=== PATIENT | female | born 1965 | race Caucasian/White ===

== ENCOUNTER → 2016-11-06 | Outpatient (CLI) | payer OTHER ==
[~2016-11-06] MED LIST: AGM875 PO; OXYC1TAB3 PO; PRLSR20 PO
== END | disposition home or self-care (01) ==
LOC: C.PAPS 14:05
PROVIDERS: ATTEND Obstetrics & Gynecology
DX: Z12.4 Encounter for screening for malignant neoplasm of cervix (principal)

== ENCOUNTER → 2017-01-08 | Outpatient (CLI) | payer OTHER ==
[2017-01-08 10:39] LABS: BASO % 0.9 %; BASO ABS # 0.03 K/uL (0-0.2); COMPLETE YES; EOS % 1.8 %; LYMPH % 38.5 %; LYMPH ABS # 1.27 K/uL (1.2-3.4); MEAN CELL VOLUME 93.3 fL (80-100); MEAN CORPUSCULAR HEMOGLOBIN 30.9 pg (25-34); MEAN CORPUSCULAR HGB CONC 33.1 g/dl (32-36); MEAN PLATELET VOLUME 11.6 fL (7.4-10.4); MONO % 10.6 %; NEUT % 48.2 %; PLATELET COUNT 226 K/uL (130-400)
[2017-01-08 11:06] LABS: ALT/SGPT 29 U/L (12-78); AMYLASE 25 U/L (25-115); BLOOD UREA NITROGEN 21 mg/dl (7-18); BUN/CREATININE RATIO 25.2 (10-20); CALCIUM 9.2 mg/dl (8.5-10.1); CARBON DIOXIDE 29 mmol/L (21-32); CHLORIDE 102 mmol/L (98-107); CHOLESTEROL 177 mg/dl (0-200); CREATININE 0.82 mg/dl (0.60-1.20); GLUCOSE 87 mg/dl (70-99); POTASSIUM 4.6 mmol/L (3.5-5.1); SODIUM 140 mmol/L (136-145); TRIGLYCERIDES 47 mg/dl (0-150); VERY LOW DENSITY LIPOPROT CALC 9 mg/dl
[2017-01-08 11:16] LABS: ALB/GLOB RATIO 1.4 (0.9-2); ALKALINE PHOSPHATASE 58 U/L (45-117); AST/SGOT 16 U/L (15-37); HDL CHOLESTEROL 90 mg/dl; LDL CHOLESTEROL CALCULATED 78 mg/dl; TOTAL IRON BINDING CAPACITY 307 mcg/dl (250-450)
== END | disposition home or self-care (01) ==
LOC: C.LAB1850 09:47
PROVIDERS: ATTEND Physician Assistant
DX: R53.81 Other malaise (principal); E78.00 Pure hypercholesterolemia, unspecified; R10.11 Right upper quadrant pain

== ENCOUNTER → 2017-02-08 | Outpatient (CLI) | payer OTHER ==
--- NOTE | 2017-02-09 07:54 | MAMMOGRAPHY REPORT ---
BILATERAL DIGITAL SCREENING MAMMOGRAM TOMOSYNTHESIS WITH CAD: 02/08/2017 CLINICAL HISTORY: Routine screening. Patient has no complaints. TECHNIQUE: Breast tomosynthesis in addition to standard 2D mammography was performed. Current study was also evaluated with a Computer Aided Detection (CAD) system. COMPARISON: Comparison is made to exams dated: 02/03/2016 mammogram, 01/09/2015 mammogram, 4 mammogram, 12/07/2012 mammogram, 12/02/2011 mammogram, and 11/26/2010 mammogram - [facility]. BREAST COMPOSITION: There are scattered areas of fibroglandular density in both breasts. FINDINGS: The parenchymal pattern is unchanged. No developing mass, architectural distortion or clus ter of suspicious microcalcifications is seen in either breast. IMPRESSION: ACR BI-RADS CATEGORY 2: BENIGN There is no mammographic evidence of malignancy. A 1 year screening mammogram is recommended. The pa tient will receive written notification of the results. Approximately 10% of breast cancers are not detected with mammography. A negative mammographic report should not delay biopsy if a clinically suggestive mass is present. Khadra Moe M.D. ay/:02/08/2017 17:25:15 [facility] [employer] [facility] Director: Keisha JJ(Mari)(Marcella)(BD), [facility] letter sent: Normal 1/2 BI-RADS Code: ACR BI-RADS Category 2: Benign
== END | disposition home or self-care (01) ==
LOC: C.MAMM 07:33
PROVIDERS: ATTEND Obstetrics & Gynecology
DX: Z12.31 Encounter for screening mammogram for malignant neoplasm of breast (principal)

== ENCOUNTER → 2017-07-05 | Day surgery (SDC) | payer OTHER ==
[2017-06-25 09:00] VITALS: Ht 157.5 cm; Wt 59.1 kg
[~2017-07-05] VITALS: Ht 157.5 cm; Wt 59.1 kg
[~2017-07-05] MED LIST changes: -AGM875 PO; +AMOX1TAB44 PO; +B-COTAB18 PO; +CALC1TAB25 PO; +CHOL1TAB46 PO; +EST1 PO; +FEXO1TAB49 PO; +FLUT50SP45 NAE; +LIDOCAINE HCL 2% 2 ML VIAL (20MG/ML) ONE; +MIDAZOLAM HCL 1 MG/ML 2ML VIAL ONE; +OMEG10007 PO; -OXYC1TAB3 PO; +PHYT100T PO; +POTA99TA PO; +PRIMROSE OIL PO; +PROG100C6 PO; +PROPOFOL IV EMULSION 10 MG/ML 20 ML VIAL ONE; +SODIUM CHLORIDE 0.9% 500ML 500 ML IV ONE
--- NOTE | 2017-07-05 14:42 | Endo History and Physical ---
History & Physical Date of Service: July 05, 2017. Chief Complaint: Screening colonoscopy and GERD Referring Physician: Dr. Menard History of Present Illness 51 yo CF who presents for EGD secondary to GERD and screening colonoscopy. Past Surgical History Hx Cardiac Surgery: No Hx Internal Defibrillator: No Hx Pacemaker: No Hx Abdominal Surgery: Yes (2 C-SECTIONS) Hx of Implantable Prosthesis: No Hx Cancer Surgery: No Hx Thoracic Surgery: No Hx Orthopedic: Yes (R/L ULNA OSTEOTOMY) Hx Urinary Tract Surgery: No Family History IBD Social History Smoking Status: Never Smoker Hx Substance Use: No Hx Alcohol Use: No Allergies Coded Allergies: Hydrocodone (Verified Allergy, Mild, UNKNOWN, 07/05/17) Codeine (Unverified Adverse Reaction, Unknown, GI UPSET, 07/05/17) Current Medications Reported Home Medications Medications Dose Route/Sig Max Daily Dose Days Date Category Calcium Magnesium 750 (Calcium W/ Magnesium) 1 Tab Tab 1 Tab PO BID 06/25/17 Reported [place]-3 (Fish Oil) 1 Ea Cap 1 Cap PO BID 06/25/17 Reported [[place] Oil] 1,000 Mg PO BID 06/25/17 Reported Potassium 99 Mg Tab 1 Tab PO DAILY 06/25/17 Reported Vitamin B Complex (B-Complex Vitamins) 1 Tab Tab 1 Tab PO DAILY 06/25/17 Reported Vitamin K (Phytonadione) 100 Mcg Tab 1 Tab PO DAILY 06/25/17 Reported Vitamin D3 (Cholecalciferol) 5,000 Unit Tab 1 Tab PO TID 06/25/17 Reported Prometrium (Progesterone) 100 Mg Cap 100 Mg PO HS 06/25/17 Reported Estradiol 1 Mg Tab 1 Tab PO HS 06/25/17 Reported Amoxicillin/Clavulanate P (Amoxicillin & Pot Clavulanate) 1 Tab Tab 875 Mg PO BID 06/25/17 Reported [place] Allergy (Fexofenadine Hcl) 180 Mg Tab 1 Tab PO DAILY 30 06/25/17 Reported Allergy Nasal [place] 24 Ho (Fluticasone Propionate (Nasal)) 50 Mcg/Act Spr 1 [place] ANTHONY DAILY 06/25/17 Reported Vital Signs Weight (Kilograms): 59.09 Height (Feet): 5 Height (Inches): 2 Physical Exam General Appearance: WD/WN, no apparent distress Respiratory/Chest: Auscultation: breath sounds normal Cardiovascular: Heart Auscultation: RRR Abdomen: Bowel Sounds: normal Inspection & Palpation: soft, non-distended, no tenderness, guarding & rebound Assessment and Plan Assessment: 51 yo CF who presents for EGD secondary to GERD and screening colonoscopy. Plan: Proceed with EGD and Colonoscopy.
--- NOTE | 2017-07-05 15:56 | GI REPORT ---
Patient Name: Tiffany Roberts Procedure Date: 07/05/2017 2:34 PM Date of : 1965 Admit Type: Outpatient Age: 51 Gender: Female Attending MD: Chay Lopez DO Procedure: Upper GI endoscopy Providers: Chay Lopez DO Referring MD: Ghulam Ortiz Indications: Suspected gastro-esophageal reflux disease Medicines: Monitored Anesthesia Care Complications: No immediate complications. Estimated Blood Loss: Estimated blood loss: none. Procedure: Pre-Anesthesia Assessment: - Prior to the procedure, a History and Physical was performed, and patient medications and allergies were reviewed. The patient's tolerance of previous anesthesia was also reviewed. The risks and benefits of the procedure and the sedation options and risks were discussed with the patient. All questions were answered, and informed consent was obtained. Prior Anticoagulants: The patient has taken no previous anticoagulant or antiplatelet agents. ASA Grade Assessment: II - A patient with mild systemic disease. After reviewing the risks and benefits, the patient was deemed in satisfactory condition to undergo the procedure. After obtaining informed consent, the endoscope was passed under direct vision. Throughout the procedure, the patient's blood pressure, pulse, and oxygen saturations were monitored continuously. The scope was introduced through the mouth, and advanced to the second part of duodenum. The upper GI endoscopy was accomplished without difficulty. The patient tolerated the procedure well. Findings: The esophagus was normal. Localized mild inflammation characterized by erythema was found in the gastric antrum. Biopsies were taken with a cold forceps for histology. The examined duodenum was normal. Impression: - Normal esophagus. - Gastritis. Biopsied. - Normal examined duodenum. Recommendation: - Resume previous diet. - Continue present medications. - Await pathology results. - Return to primary care physician as previously scheduled. Chay Lopez DO 07/05/2017 3:55:40 PM This report has been signed electronically. Note Initiated On: 07/05/2017 2:34 PM Number of Addenda: 0 I attest to the content of the Intraoperative Record and orders documented therein, exceptions below {[id number]}
--- NOTE | 2017-07-05 15:59 | GI REPORT ---
Patient Name: Tiffany Roberts Procedure Date: 07/05/2017 2:39 PM Date of : 1965 Admit Type: Outpatient Age: 51 Gender: Female Attending MD: Chay Lopez DO Procedure: Colonoscopy Providers: Chay Lopez DO Referring MD: Ghulam Ortiz Indications: Screening for colorectal malignant neoplasm Medicines: Monitored Anesthesia Care Complications: No immediate complications. Estimated Blood Loss: Estimated blood loss: none. Procedure: Pre-Anesthesia Assessment: - Prior to the procedure, a History and Physical was performed, and patient medications and allergies were reviewed. The patient's tolerance of previous anesthesia was also reviewed. The risks and benefits of the procedure and the sedation options and risks were discussed with the patient. All questions were answered, and informed consent was obtained. Prior Anticoagulants: The patient has taken no previous anticoagulant or antiplatelet agents. ASA Grade Assessment: II - A patient with mild systemic disease. After reviewing the risks and benefits, the patient was deemed in satisfactory condition to undergo the procedure. After I obtained informed consent, the scope was passed under direct vision. Throughout the procedure, the patient's blood pressure, pulse, and oxygen saturations were monitored continuously. The scope was introduced through the anus and advanced to the terminal ileum. The colonoscopy was performed without difficulty. The patient tolerated the procedure well. The quality of the bowel preparation was good. The terminal ileum, ileocecal valve, appendiceal orifice, and rectum were photographed. Findings: The perianal and digital rectal examinations were normal. Non-bleeding internal hemorrhoids were found during retroflexion. The hemorrhoids were small. Impression: - Non-bleeding internal hemorrhoids. - No specimens collected. Recommendation: - Resume previous diet. - Continue present medications. - Repeat colonoscopy in 10 months for surveillance. - Return to primary care physician as previously scheduled. Chay Lopez DO 07/05/2017 3:58:39 PM This report has been signed electronically. Note Initiated On: 07/05/2017 2:39 PM Number of Addenda: 0 I attest to the content of the Intraoperative Record and orders documented therein, exceptions below {[id number]}
[2017-07-05 16:19] VITALS: BP 108/78; PULSE 61; O2SAT 99
--- NOTE | 2017-07-05 16:19 | Discharge Instructions ---
Endoscopy Patient Instructions Date / Procedure(s) Performed July 05, 2017. Colonoscopy, EGD Allergy Information Coded Allergies: Hydrocodone (Verified Allergy, Mild, UNKNOWN, 07/05/17) Codeine (Verified Adverse Reaction, Mild, GI UPSET, 07/05/17) Discharge Date / Findings July 05, 2017. EGD: Gastritis s/p biopsies Colonoscopy: Internal hemorrhoids Provider Instructions Activity Restrictions - No exercising or heavy lifting for 24 hours. - Do not drink alcohol the day of the procedure. - Do not drive a car or operate machinery until the day after the procedure. - Do not make any important decisions or sign important papers in 24 hours after the procedure. Following Day: - Return to full activity which may include returning to work/school. Diet Start your diet with liquids and light foods (jello, soup, juice, toast). Then eat your usual diet if not nauseated. Treatment For Common After Affects For mild abdominal pain, bloating, or excessive gas: - Rest - Eat lightly - Lie on right side Follow-Up Information Follow-up with Dr. Ortiz as scheduled Anesthesia Information What You Should Know You have had a procedure that required some medicine to reduce anxiety and discomfort. This treatment is called moderate sedation. After receiving the treatment, you may be sleepy, but you will be able to breathe on your own. The effects of the treatment may last for several hours. Follow these instructions along with Activity/Diet recommendations noted above: * Do NOT do anything where dizziness or clumsiness would be dangerous. * Rest quietly at home today, then you can be up and about tomorrow. * Have a responsible person stay with you the rest of today. * You may have had an I.V. today. If so, you may take the dressing off later today. Recommendations Call your doctor if: * Trouble breathing * Continuous vomiting for more than 24 hours * Temperature above 101 degrees * Severe abdominal pain or bloating * Pain not relieved by pain medicine ordered * There is increased drainage or redness from any incision * A large amount of rectal bleeding greater than 2-3 tablespoons. (If you had a polyp/s removed or have hemorrhoids, a small amount of blood - from the rectum is to be expected.) * You have any unanswered questions or concerns. IN THE EVENT OF A SERIOUS EMERGENCY, GO TO THE NEAREST EMERGENCY ROOM Your discharge instructions were prepared by provider Chay Lopez. Patient Instructions Signature Page Tiffany Roberts Patient (or Guardian) Signature/Date: I have read and understand the instructions given to me by my caregivers. Caregiver/RN/Doctor Signature/Date: The above-named patient and/or guardian has received patient instructions on this date. + Original Patient Signature Page (only) stays with chart. Please make copy for patient.
--- NOTE | 2017-07-05 16:25 | Anesthesiology Progress Note ---
Anesthesia Post Op Note Date & Time July 05, 2017 at 16:24 Vital Signs Pain Intensity: 0 Vital Signs Past 12 Hours Date Time Temp Pulse Resp B/P (MAP) Pulse Ox O2 Delivery O2 Flow Rate FiO2 07/05/17 16:19 61 18 108/78 (88) 99 Room Air 07/05/17 16:04 63 18 108/72 (84) 98 Room Air 07/05/17 15:50 36.0 67 16 103/62 (76) 98 Room Air 07/05/17 14:42 36.7 67 18 132/78 (96) 99 Room Air
== END | disposition home or self-care (01) ==
LOC: C.GI 14:11
PROVIDERS: ATTEND Internal Medicine
DX: Z12.11 Encounter for screening for malignant neoplasm of colon (principal); K64.8 Other hemorrhoids; K21.9 Gastro-esophageal reflux disease without esophagitis; Z88.5 Allergy status to narcotic agent